=== PATIENT | male | born 1985 | race Hispanic/Latino ===

== ENCOUNTER 2017-05-11 22:25 | Emergency (ER) | payer OTHER ==
[~2017-05-11] VITALS: Ht 198.1 cm; Wt 162.2 kg
[~2017-05-11 22:25] MED LIST: AMOXICILLIN875 MG OR; AMOXICILLIN875 MG PO; AUGMENTIN875TAB PO; MEDDOSEPAK OR; NO HOME MEDS; ULTRAM50 M1 PO
[2017-05-11] MEDS ORDERED: ZYRTEC10 M5 PO (22:50)
[2017-05-11] MEDS ORDERED: FLONASE AL50 MCG/ACT (22:50)
[2017-05-11] MEDS ORDERED: ZITHROMAX250 MG PO (23:12)
[2017-05-11] MEDS ORDERED: ROBITUSSIN AC10 ML PO (23:12)
[2017-05-11] MEDS ORDERED: PROVENTIL HFA IN (23:12)
[2017-05-11 23:43] VITALS: BP 139/98
== END 2017-05-11 23:40 | disposition home or self-care (01) | DRG 203 ==
LOC: ED 22:25
DX: J40 Bronchitis, not specified as acute or chronic (principal); R05 Cough; R50.9 Fever, unspecified

== ENCOUNTER 2020-06-16 20:53 | Emergency (ER) | payer OTHER ==
[~2020-06-16] VITALS: Ht 198.1 cm; Wt 168.0 kg
[~2020-06-16 20:53] MED LIST changes: +FLONASE AL50 MCG/ACT; +PROVENTIL HFA IN; +ROBITUSSIN AC10 ML PO; +ZITHROMAX250 MG PO; +ZYRTEC10 M5 PO
[2020-06-16] MEDS ORDERED: LOSARTAN POTASS25 MG PO (21:13)
[2020-06-16] MEDS ORDERED: PHENTERMINE HCL15 MG PO (21:14)
[2020-06-16] MEDS ORDERED: VITAMIN D PO (21:16)
[2020-06-16] MEDS ORDERED: BACTRIM DS1 TAB PO (21:43)
[2020-06-16 22:10] VITALS: BP 124/76
== END 2020-06-16 22:10 | disposition home or self-care (01) | DRG 603 ==
LOC: ED 20:53
PROC: 0H97XZZ Drainage of Abdomen Skin, External Approach (ICD-10-PCS; principal; 2020-06-16)
DX: L02.211 Cutaneous abscess of abdominal wall (principal); I10 Essential (primary) hypertension; E66.9 Obesity, unspecified

== ENCOUNTER 2020-06-18 23:48 | Emergency (ER) | payer OTHER ==
[~2020-06-18 23:48] MED LIST changes: +BACTRIM DS1 TAB PO; +LOSARTAN POTASS25 MG PO; +PHENTERMINE HCL15 MG PO; +VITAMIN D PO
[2020-06-19] MEDS ORDERED: ZOFRAN4 MG/TAB PO (16:50)
[2020-06-19] MEDS ORDERED: KEFLEX500 M1 PO (16:50)
[2020-06-19] MEDS ORDERED: ULTRAM50 MG PO (16:50)
== END 2020-06-18 23:58 | disposition left against medical advice (07) | DRG 951 ==
LOC: ED 23:48 → LWOBS 23:56 → ED 23:56 → LWOBS 23:58
DX: Z53.21 Procedure and treatment not carried out due to patient leaving prior to being seen by health care provider (principal)

== ENCOUNTER 2020-06-19 15:04 | Emergency (ER) | payer OTHER ==
[~2020-06-19] VITALS: Ht 198.1 cm; Wt 168.2 kg
[2020-06-19] MEDS ORDERED: KEFLEX500 M1 PO (16:50)
[2020-06-19] MEDS ORDERED: ULTRAM50 MG PO (16:50)
[2020-06-19] MEDS ORDERED: ZOFRAN4 MG/TAB PO (16:50)
[2020-06-19 17:10] VITALS: BP 133/87
== END 2020-06-19 17:10 | disposition home or self-care (01) | DRG 603 ==
LOC: ED 15:04
PROC: 0H97XZZ Drainage of Abdomen Skin, External Approach (ICD-10-PCS; principal; 2020-06-19)
DX: L02.211 Cutaneous abscess of abdominal wall (principal); B95.62 Methicillin resistant Staphylococcus aureus infection as the cause of diseases classified elsewhere

== ENCOUNTER 2020-06-20 09:42 | Emergency (ER) | payer OTHER ==
[~2020-06-20] VITALS: Ht 198.1 cm; Wt 168.0 kg
[~2020-06-20 09:42] MED LIST changes: +KEFLEX500 M1 PO; +ULTRAM50 MG PO; +ZOFRAN4 MG/TAB PO
[2020-06-20 10:40] LABS: HEMATOCRIT 44.5 % (39.0-50.0); HEMOGLOBIN 14.9 g/dl (14.0-18.0); IMMATURE GRANULOCYTES 0.6 % (0.0-5.0); MEAN CELL VOLUME 82.3 fL CALC (80.0-100.0); MEAN CORPUSCULAR HGB 27.5 pG CALC (26.0-32.0); MEAN CORPUSCULAR HGB CONC 33.5 g/dL CAL (32.0-36.0); NEUT# 8.17 thou/uL (1.82-7.42); RED BLOOD COUNT 5.41 mill/uL (4.70-6.10); RED CELL DISTRI WIDTH 12.5 % (11.5-15.5)
[2020-06-20 10:58] LABS: ALBUMIN 4.7 g/dL (3.2-5.0); ALKALINE PHOSPHATASE 68 u/l (38-126); BUN 14 mg/dL (9-20); BUN/CREATININE RATIO 12 (12-20 (CALC)); CARBON DIOXIDE 25 mmol/l (22-30); CHLORIDE 102 mmol/l (95-108); CREATININE 1.1 mg/dL (0.7-1.3); GFR > 60 ML/MIN (>=60 (CALC)); GFR FOR AFR.AMER. > 60 ML/MIN (>=60 (CALC)); POTASSIUM 3.8 mmol/l (3.5-5.1); SGOT/AST 23 u/l (17-59); TOTAL PROTEIN 8.2 g/dL (6.3-8.2)
[2020-06-20 10:59] LABS: ANION GAP 14 (6-22 (CALC)); BILIRUBIN, TOTAL 0.9 mg/dL (0.0-1.4); SODIUM 137 mmol/l (137-146)
[2020-06-20 12:47] VITALS: BP 109/53
== END 2020-06-20 13:00 | disposition home or self-care (01) | DRG 603 ==
LOC: ED 09:42
PROVIDERS: Emergency Medicine
DX: L03.311 Cellulitis of abdominal wall (principal); I10 Essential (primary) hypertension; E66.9 Obesity, unspecified
CPT/HCPCS: Q9967

== ENCOUNTER 2020-12-21 11:01 | Emergency (ER) | payer OTHER | END 2020-12-21 13:10 | disposition left against medical advice (07) | DRG 951 | LOC: ED 11:01 → LWOBS 13:09 | DX: Z53.21 Procedure and treatment not carried out due to patient leaving prior to being seen by health care provider (principal) ==

== ENCOUNTER 2022-12-19 02:53 | Emergency (ER) | payer OTHER ==
[~2022-12-19] VITALS: Ht 198.1 cm; Wt 149.0 kg
[2022-12-19 04:20] VITALS: BP 122/79
== END 2022-12-19 04:20 | disposition home or self-care (01) | DRG 563 ==
LOC: ED 02:53
DX: S53.402A Unspecified sprain of left elbow, initial encounter (principal); I10 Essential (primary) hypertension; E66.9 Obesity, unspecified; X50.0XXA Overexertion from strenuous movement or load, initial encounter